=== PATIENT | male | born 1990 | race Caucasian/White ===

== ENCOUNTER 2020-11-23 15:30 | Emergency (ER) | payer OTHER | END 2020-11-23 18:03 | disposition home or self-care (01) | LOC: ER1 15:30 | DX: S92.002A Unspecified fracture of left calcaneus, initial encounter for closed fracture (principal); S92.251A Displaced fracture of navicular [scaphoid] of right foot, initial encounter for closed fracture; V49.40XA Driver injured in collision with unspecified motor vehicles in traffic accident, initial encounter; Z88.0 Allergy status to penicillin; Y92.410 Unspecified street and highway as the place of occurrence of the external cause; F17.210 Nicotine dependence, cigarettes, uncomplicated | CPT/HCPCS: 29515; 73610; 73630; 96372; 99283; J1885 ==